=== PATIENT | male | born 1990 | race Caucasian/White ===

== ENCOUNTER 2019-09-08 01:19 | Emergency (ER) | payer SELFPAY ==
[~2019-09-08] VITALS: Ht 188 cm; Wt 93.0 kg
== END 2019-09-08 03:07 | disposition home or self-care (01) ==
LOC: ED 01:19
DX: S16.1XXA Strain of muscle, fascia and tendon at neck level, initial encounter (principal); S39.012A Strain of muscle, fascia and tendon of lower back, initial encounter; S29.012A Strain of muscle and tendon of back wall of thorax, initial encounter; S00.83XA Contusion of other part of head, initial encounter; Z88.0 Allergy status to penicillin; V89.2XXA Person injured in unspecified motor-vehicle accident, traffic, initial encounter
CPT/HCPCS: 70450; 70486; 72070; 72100; 72125; 99284-25